=== PATIENT | female | born 1935 | race Caucasian/White ===

== ENCOUNTER → 2021-03-07 | Outpatient (CLI) | payer MEDICARE ==
[~2021-03-07] MED LIST: D31000TA2 PO; ECOT81TA5 PO; FERR325T81 PO; GABA-283 PO; LOVA40TA PO; MAGN1CAP PO; NOVOINJ3 SC; OMEP40CA4 PO; [UNRECOGNIZED DRUG - CODE] SC
== END ==
LOC: M LABSMTC 10:12
PROVIDERS: ATTEND Anesthesiology
DX: Z01.812 Encounter for preprocedural laboratory examination (principal); Z20.822 Contact with and (suspected) exposure to COVID-19

== ENCOUNTER 2021-03-12 06:02 | Inpatient (IN) | payer MEDICARE ==
[2021-03-12] VITALS (9 sets, daily range): BP systolic 104–129; BP diastolic 58–73
[~2021-03-12] VITALS: Ht 162.6 cm; Wt 75.7 kg
[~2021-03-12 06:02] MED LIST changes: +LIDOCAINE 1% MDV 20ML VIAL SQ PRN; +LR 1,000 ML IV ONE; +cefTRIAXone SOD 1 GM in D5W MINI-BAG PLUS 50 ML IV ONE
[2021-03-12] MEDS ORDERED: cefTRIAXone SOD 1 GM in D5W MINI-BAG PLUS 50 ML IV ONE (06:40)
[2021-03-12] MEDS ORDERED: DESFLURANE 240 ML INHALANT As Ordered ONE (07:09)
[2021-03-12] MEDS ORDERED: GLUCAGON INJ 1MG VIAL As Ordered ONE (07:10)
[2021-03-12] MEDS ORDERED: BUPIVACAINE/EPIN 0.5% 30 ML VIAL As Ordered ONE (07:10)
[2021-03-12] MEDS ORDERED: BUPIVACAINE LIPOSOME/PF 1.3% 20ML VIAL (13.3MG/ML)(EXPAREL)(C9290 PER1MG) As Ordered ONE (07:10)
[2021-03-12] MEDS ORDERED: BUPIVACAINE HCL 0.25% 10ML VIAL As Ordered ONE (07:10)
[2021-03-12] MEDS ORDERED: LIDOCAINE 2% 100MG/5ML SDV (FOR ANES.) As Ordered ONE ×2 (07:11→07:13)
[2021-03-12] MEDS ORDERED: propofoL 200 MG/20 ML VIAL As Ordered ONE (07:11)
[2021-03-12] MEDS ORDERED: ROCURONIUM BROMIDE 50 MG/5 ML VIAL As Ordered ONE ×2 (07:11→09:01)
[2021-03-12] MEDS ORDERED: fentaNYL 100 MCG/2 ML INJECTION As Ordered ONE ×3 (07:12→12:51)
[2021-03-12] MEDS ORDERED: dexameTHASONE 4 MG/ML 1ML VIAL (J1100 PER 1MG) As Ordered ONE (07:12)
[2021-03-12] MEDS ORDERED: ONDANSETRON 4MG/2ML VIAL As Ordered ONE (07:12)
[2021-03-12] MEDS ORDERED: ePHEDrine SULFATE 25 MG/5 ML(5MG/ML) SYRINGE As Ordered ONE (07:51)
[2021-03-12] MEDS ORDERED: BUPIVACAINE/EPIN 0.25% 30 ML VIAL As Ordered ONE (07:58)
[2021-03-12] MEDS ORDERED: LABETALOL 100MG/20ML VIAL As Ordered ONE (08:33)
[2021-03-12] MEDS ORDERED: HYDROmorphone HCL 2MG/ML 1ML VIAL As Ordered ONE (09:18)
[2021-03-12] MEDS ORDERED: SUGAMMADEX SODIUM 500 MG/5 ML VIAL (BRIDION) As Ordered ONE (11:04)
[2021-03-12] MEDS ORDERED: ACETAMINOPHEN 1000MG 100ML IV BTL (OFIRMEV) (J0131 PER 10MG) As Ordered ONE (11:05)
[2021-03-12] MEDS: HumaLOG INSULIN (NovoLOG) PER UNIT SC SCH ×2 (12:00→17:10)
[2021-03-12] MEDS ORDERED: oxyCODONE 5MG TAB PO PRN (12:10)
[2021-03-12] MEDS ORDERED: LR 1,000 ML IV SCH (12:10)
[2021-03-12] MEDS ORDERED: HYDROMORPHONE HCL 0.5 MG/ 0.5 ML SYRINGE (J1170 PER 1) IV PRN (12:10)
[2021-03-12] MEDS ORDERED: ONDANSETRON 4MG/2ML VIAL IV PRN ×2 (12:10→12:15)
[2021-03-12] MEDS ORDERED: fentaNYL 100 MCG/2 ML INJECTION IV PRN (12:10)
[2021-03-12] MEDS: NS 1,000 ML IV SCH ×2 (12:15→21:31)
[2021-03-12] MEDS ORDERED: DEXTROSE 50% 50 ML SYRINGE IV PRN (12:15)
[2021-03-12] MEDS ORDERED: GLUCOSE 4GM CHEW TABLET PO PRN (12:15)
[2021-03-12] MEDS ORDERED: MORPHINE 2 MG/ML 1ML VIAL (J2270) IV PRN (12:15)
[2021-03-12] MEDS ORDERED: GLUCAGON INJ 1MG VIAL SC PRN (12:15)
[2021-03-12] MEDS ORDERED: IPRATROPIUM 0.5MG/ALBUTEROL 2.5MG INH SOL UD 3ML (DUONEB) NEB PRN (12:15)
[2021-03-12] MEDS: IPRATROPIUM 0.5MG/ALBUTEROL 2.5MG INH SOL UD 3ML (DUONEB) NEB SCH ×2 (14:20→19:25)
[2021-03-12 16:19] LABS: HEMATOCRIT 27.8 % (36.0-47.0); HEMOGLOBIN 8.3 g/dl (12.0-15.5)
[2021-03-12] MEDS: PANTOPRAZOLE 40MG VIAL (C9113 PER 1) IV SCH (17:10)
[2021-03-12] MEDS: KETOROLAC 30 MG/ML 1ML VIAL IV PRN (17:10)
[2021-03-12] MEDS: ALVIMOPAN 12 MG CAPSULE (ENTEREG) PO SCH (20:33)
[2021-03-12] MEDS: MORPHINE 2 MG/ML 1ML VIAL (J2270) IV PRN (20:34)
[2021-03-13] VITALS (7 sets, daily range): BP systolic 106–153; BP diastolic 57–76
[2021-03-13] MEDS: IPRATROPIUM 0.5MG/ALBUTEROL 2.5MG INH SOL UD 3ML (DUONEB) NEB SCH ×4 (01:31→19:15)
[2021-03-13] MEDS: KETOROLAC 30 MG/ML 1ML VIAL IV PRN ×2 (03:19→17:52)
[2021-03-13] MEDS: NS 1,000 ML IV SCH (05:44)
[2021-03-13] MEDS: HumaLOG INSULIN (NovoLOG) PER UNIT SC SCH ×4 (06:00→18:00)
[2021-03-13 06:21] LABS: HEMATOCRIT 25.5 % (36.0-47.0); HEMOGLOBIN 7.5 g/dl (12.0-15.5); MEAN CORPUSCULAR HEMOGLOBIN 24.7 pg (27.0-33.0); MEAN CORPUSCULAR HGB CONC 29.4 g/dl (32.0-36.5); MEAN CORPUSCULAR VOLUME 83.9 fl (80.0-96.0); PLATELET COUNT, AUTOMATED 234 10^3/uL (150-450); RED BLOOD COUNT 3.04 10^6/uL (4.00-5.40); WHITE BLOOD COUNT 8.1 10^3/uL (4.0-10.0)
[2021-03-13 06:41] LABS: CALCIUM LEVEL 8.1 MG/DL (8.8-10.2); CREATININE FOR GFR 1.01 MG/DL (0.55-1.30); GLOMERULAR FILTRATION RATE 55.2 (>32); POTASSIUM SERUM 3.5 MEQ/L (3.5-5.1)
[2021-03-13] MEDS ORDERED: cefTRIAXone SOD 1 GM in D5W MINI-BAG PLUS 50 ML IV ONE (08:00)
[2021-03-13] MEDS: ALVIMOPAN 12 MG CAPSULE (ENTEREG) PO SCH ×2 (08:14→21:02)
[2021-03-13] MEDS: PANTOPRAZOLE 40MG VIAL (C9113 PER 1) IV SCH (08:15)
[2021-03-13] MEDS: MORPHINE 2 MG/ML 1ML VIAL (J2270) IV PRN (08:32)
[2021-03-14] MEDS: HumaLOG INSULIN (NovoLOG) PER UNIT SC SCH ×4 (00:40→17:33)
[2021-03-14] MEDS: IPRATROPIUM 0.5MG/ALBUTEROL 2.5MG INH SOL UD 3ML (DUONEB) NEB SCH ×4 (01:52→19:31)
[2021-03-14 02:00] VITALS: BP 134/77
[2021-03-14 06:00] VITALS: BP 124/69
[2021-03-14 06:33] LABS: HEMATOCRIT 29.8 % (36.0-47.0); HEMOGLOBIN 8.9 g/dl (12.0-15.5); MEAN CORPUSCULAR HGB CONC 29.9 g/dl (32.0-36.5); MEAN CORPUSCULAR VOLUME 83.7 fl (80.0-96.0); PLATELET COUNT, AUTOMATED 211 10^3/uL (150-450); RED BLOOD COUNT 3.56 10^6/uL (4.00-5.40); WHITE BLOOD COUNT 6.5 10^3/uL (4.0-10.0)
[2021-03-14 07:00] LABS: BLOOD UREA NITROGEN 12 MG/DL (7-18); CALCIUM LEVEL 8.2 MG/DL (8.8-10.2); CARBON DIOXIDE LEVEL 27 MEQ/L (21-32); CHLORIDE LEVEL 109 MEQ/L (98-107); CREATININE FOR GFR 0.81 MG/DL (0.55-1.30); GLOMERULAR FILTRATION RATE > 60.0 (>32); GLUCOSE, FASTING 161 MG/DL (70-100); POTASSIUM SERUM 3.6 MEQ/L (3.5-5.1); SODIUM LEVEL 142 MEQ/L (136-145)
[2021-03-14] MEDS: ALVIMOPAN 12 MG CAPSULE (ENTEREG) PO SCH ×2 (08:41→20:01)
[2021-03-14] MEDS: KETOROLAC 30 MG/ML 1ML VIAL IV PRN ×2 (08:42→17:33)
[2021-03-14] MEDS: PANTOPRAZOLE 40MG VIAL (C9113 PER 1) IV SCH (08:42)
[2021-03-14 10:00] VITALS: BP 145/70
[2021-03-14 14:00] VITALS: BP 154/81
[2021-03-14] MEDS ORDERED: HumaLOG INSULIN (NovoLOG) PER UNIT SC SCH (21:00)
[2021-03-14 22:00] VITALS: BP 130/76
[2021-03-15] MEDS: IPRATROPIUM 0.5MG/ALBUTEROL 2.5MG INH SOL UD 3ML (DUONEB) NEB SCH ×2 (01:30→07:11)
[2021-03-15 05:30] VITALS: BP 169/97
[2021-03-15 05:54] LABS: HEMATOCRIT 30.5 % (36.0-47.0); HEMOGLOBIN 9.3 g/dl (12.0-15.5); MEAN CORPUSCULAR HEMOGLOBIN 25.3 pg (27.0-33.0); MEAN CORPUSCULAR HGB CONC 30.5 g/dl (32.0-36.5); MEAN CORPUSCULAR VOLUME 82.9 fl (80.0-96.0); PLATELET COUNT, AUTOMATED 170 10^3/uL (150-450); RED BLOOD COUNT 3.68 10^6/uL (4.00-5.40); WHITE BLOOD COUNT 6.1 10^3/uL (4.0-10.0)
[2021-03-15 06:00] VITALS: BP 169/97
[2021-03-15 06:20] LABS: BLOOD UREA NITROGEN 10 MG/DL (7-18); CALCIUM LEVEL 8.5 MG/DL (8.8-10.2); CARBON DIOXIDE LEVEL 26 MEQ/L (21-32); CHLORIDE LEVEL 109 MEQ/L (98-107); CREATININE FOR GFR 0.79 MG/DL (0.55-1.30); GLOMERULAR FILTRATION RATE > 60.0 (>32); GLUCOSE, FASTING 253 MG/DL (70-100); POTASSIUM SERUM 3.8 MEQ/L (3.5-5.1); SODIUM LEVEL 141 MEQ/L (136-145)
[2021-03-15 06:23] VITALS: BP 174/95
[2021-03-15] MEDS: PANTOPRAZOLE 40MG VIAL (C9113 PER 1) IV SCH (08:42)
[2021-03-15] MEDS: HumaLOG INSULIN (NovoLOG) PER UNIT SC SCH ×2 (08:42→13:03)
[2021-03-15] MEDS: ALVIMOPAN 12 MG CAPSULE (ENTEREG) PO SCH (08:42)
[2021-03-15] MEDS ORDERED: FLUBLOK(EGG FREE)(QUAD)INFLUENZA VACC 0.5ML SYRINGE 18YRS & OLDER IM ONE (13:00)
== END 2021-03-15 13:46 | disposition home or self-care (01) | DRG 331 ==
LOC: M OR 06:02 → M MSPAV 12:47
PROVIDERS: ADMIT Surgery; ATTEND Surgery
PROC: 0DTK4ZZ Resection of Ascending Colon, Percutaneous Endoscopic Approach (ICD-10-PCS; principal; 2021-03-12 07:30)
DX: C18.2 Malignant neoplasm of ascending colon (principal); I10 Essential (primary) hypertension; E11.40 Type 2 diabetes mellitus with diabetic neuropathy, unspecified; G47.33 Obstructive sleep apnea (adult) (pediatric); E78.00 Pure hypercholesterolemia, unspecified; Z79.899 Other long term (current) drug therapy; Z79.4 Long term (current) use of insulin

== ENCOUNTER → 2021-12-16 | Outpatient (CLI) | payer MEDICARE ==
[~2021-12-16] MED LIST changes: -D31000TA2 PO; -LIDOCAINE 1% MDV 20ML VIAL SQ PRN; -LR 1,000 ML IV ONE; +MAGN500C2 PO; +VITA100093 PO; -cefTRIAXone SOD 1 GM in D5W MINI-BAG PLUS 50 ML IV ONE
== END ==
LOC: M PLARAD 07:33
PROVIDERS: ATTEND Specialist
DX: C18.2 Malignant neoplasm of ascending colon (principal)
CPT/HCPCS: 78815; A9552